=== PATIENT | male | born 1985 | race African-American/Black ===

== ENCOUNTER 2017-01-24 00:33 | Emergency (ER) | payer OTHER ==
[~2017-01-24] VITALS: Ht 190.5 cm; Wt 108.9 kg
[2017-01-24] MEDS ORDERED: NKM (00:47)
[2017-01-24] MEDS ORDERED: BENADRYL25 MG ORAL (01:07)
[2017-01-24] MEDS ORDERED: PERMETHRIN60 GM TOPIC (01:07)
[2017-01-24 01:09] VITALS: BP 128/71
[2017-01-24 01:15] VITALS: BP 128/71
--- NOTE | 2017-01-24 02:12 | Emergency Room Report ---
History of Present Illness General Chief Complaint: Skin Rash/Abscess Source: Patient Present Illness HPI 31 YOM c/o whole body "itchy rash" for "months." Predominant in finger folds. Not above neck. No sick contacts. Thinks he got scabies "from friend who had it." Denies assoc fever/chills, blistering, vesicles. Didnt take any other medication for it. Allergies: Coded Allergies: No Known Allergies (Unverified , 01/24/17) Patient History Past Medical History: none Past Surgical History: none Pertinent Family History: none Social History: Denies: alcohol use, drug use, smoking Immunizations: UTD Reviewed Nursing Documentation: PMH: Agreed, PSxH: Agreed Review of Systems All Other Systems: negative except mentioned in HPI Physical Exam Vital Signs Date Time Temp Pulse Resp B/P Pulse Ox O2 Delivery O2 Flow Rate FiO2 01/24/17 00:44 98.2 77 16 128/71 99 Room Air Sp02 EP Interpretation: reviewed General Appearance: normal inspection, well appearing, no apparent distress, alert, GCS 15, non-toxic Head: normocephalic, atraumatic Eyes: bilateral eye EOMI, bilateral eye PERRL ENT: normal ENT inspection, hearing grossly normal, normal voice Neck: normal inspection, full range of motion, supple, no bony tend Respiratory: normal inspection, lungs clear, normal breath sounds, no respiratory distress, no retraction, no wheezing Cardiovascular #1: regular rate, rhythm, no edema Gastrointestinal: normal inspection, normal bowel sounds, non tender, soft, no guarding, no hernia Genitourinary: no CVA tenderness Musculoskeletal: normal inspection, back normal, normal range of motion, Yulisa' s Sign negative Neurologic: normal inspection, alert, oriented x3, responsive, steel heater III-XII nml as tested, motor strength/tone normal, speech normal Psychiatric: normal inspection, judgement/insight normal, mood/affect normal Skin: other - mutliple areas of excoriations overlying small erythematous plaques on chest, abdomen, bilateral upper/lower extremities. [place] noted bilateral upper extremities between digits at the base Medical Decision Making Diagnostic Impression: Primary Impression: Rash and other nonspecific skin eruption ER Course Likely scabies given digit burrows Rx elemite, bendaryl Advised head to toe application tonight, repeating next week if necessary DC home Last Vital Signs Date Time Temp Pulse Resp B/P Pulse Ox O2 Delivery O2 Flow Rate FiO2 01/24/17 01:15 98.2 16 128/71 99 Room Air 01/24/17 00:44 77 Status: improved Disposition: HOME, SELF-CARE Condition: Improved Scripts Diphenhydramine Hcl* (BENADRYL*) 25 Mg Capsule 25 MG ORAL TID Y for Itching for 7 Days, #30 CAP Prov: KEVON CORMIER M.D. 01/24/17 Permethrin* (ELIMITE*) 60 Gm Cream..g. 1 APPLIC TOPIC ONCE, #60 GM 1 Refill Apply cream from head to toe; leave on for 8-14 hours before washing off with water; may reapply in 1 week if live mites appear. Prov: KEVON CORMIER M.D. 01/24/17 Referrals: NOT CHOSEN [facility]/,REFERRING (PCP) Patient Instructions: Contact Precautions, [id number] Additional Instructions: - Apply cream from neck down tonight. Shower in morning. Repeat if needed one week from now. - Take benadryl as needed for itch KEVON CORMIER M.D. January 24, 2017 02:12
== END 2017-01-24 01:15 | disposition home or self-care (01) ==
LOC: EMR 00:50
DX: R21 Rash and other nonspecific skin eruption (principal)
CPT/HCPCS: 99284

== ENCOUNTER 2017-02-27 21:11 | Emergency (ER) | payer OTHER ==
[~2017-02-27] VITALS: Ht 185.4 cm; Wt 108.9 kg
[~2017-02-27 21:11] MED LIST: BENADRYL25 MG ORAL; NKM; PERMETHRIN60 GM TOPIC
[2017-02-27] MEDS ORDERED: Bactrim DS (160mg/800mg) tab ORAL ONE (21:30)
[2017-02-27 21:33] VITALS: BP 121/69
[2017-02-27] MEDS ORDERED: HYDROCODON-ACE1 EA15 ORAL (21:45)
[2017-02-27] MEDS ORDERED: Norco 5mg/325mg tab ORAL ONE (21:45)
[2017-02-27] MEDS ORDERED: BACTRIM DS TAB1 EAC1 ORAL (21:45)
--- NOTE | 2017-02-27 21:45 | Emergency Room Report ---
History of Present Illness General Chief Complaint: Skin Rash/Abscess Source: Patient Present Illness HPI Is a 31-year-old male with no past medical history. He presents with an abscess to the left face for about week and a half. He tried to pop it 2 days ago and there were some pus. Now more swollen. No fever chills but no nausea no vomiting. Never had this problem before. No other complaint. Pain is 7/ 10. Worse with palpation. Allergies: Coded Allergies: No Known Allergies (Unverified , 01/24/17) Patient History Past Medical History: see triage record, old chart reviewed Past Surgical History: none Pertinent Family History: none Social History: Reports: smoking Immunizations: other Reviewed Nursing Documentation: PMH: Agreed, PSxH: Agreed Nursing Documentation-PMH Past Medical History: No Stated History Review of Systems Eye: Denies: blurred vision, eye pain ENT: Denies: ear pain, nose congestion, throat swelling Respiratory: Denies: cough, shortness of breath Cardiovascular: Denies: chest pain, palpitations Gastrointestinal: Denies: abdominal pain, diarrhea, nausea, vomiting Musculoskeletal: Denies: back pain, joint pain Skin: Denies: rash Neurological: Denies: headache, numbness Endocrine: Denies: increased thirst, increased urine Hematologic/Lymphatic: Denies: easy bruising All Other Systems: negative except mentioned in HPI Physical Exam Vital Signs Date Time Temp Pulse Resp B/P Pulse Ox O2 Delivery O2 Flow Rate FiO2 02/27/17 21:21 98.2 63 16 121/69 99 Room Air vitals normal Sp02 EP Interpretation: reviewed, normal General Appearance: well appearing, no apparent distress, alert Head: normocephalic, atraumatic, other - Left face: Is an indurated area of 3 cm. There has a small necrotic center. No fluctuant area. Eyes: bilateral eye EOMI, bilateral eye PERRL ENT: hearing grossly normal, normal pharynx Neck: full range of motion, supple, no meningismus Respiratory: chest non-tender, lungs clear, normal breath sounds Cardiovascular #1: regular rate, rhythm, no murmur Gastrointestinal: normal bowel sounds, non tender, no mass, no organomegaly, no bruit, non-distended Musculoskeletal: back normal, gait/station normal, normal range of motion Psychiatric: mood/affect normal Skin: warm/dry Procedures Incision and Drainage Incision and Drainage : Consent: Verbal Site: Face Blade Size: 11 I & D Procedure: betadine prep, sterile drapes applied, sterile dressing applied Wound Location: face Anesthesia: Lidocaine w/ Epi Volume Anesthetic (ccs): 2 Patient Tolerated: Well Complications: None Progress area clean with Betadine. Local anesthetic 1% lidocaine with epinephrine injected. A 1 cm incision. Loculated area broken up with forcep. Small amount of pus expressed. Patient tolerated procedure without any problem. Medical Decision Making Diagnostic Impression: Primary Impression: Abscess ER Course Patient with abscess to the face. Most likely MRSA. No deep infection. We'll discharge him. No evidence of necrotizing fasciitis. Last Vital Signs Date Time Temp Pulse Resp B/P Pulse Ox O2 Delivery O2 Flow Rate FiO2 02/27/17 21:33 98.2 16 121/69 99 Room Air 02/27/17 21:21 63 Status: improved Disposition: HOME, SELF-CARE Condition: Stable Scripts Hydrocodone/Acetaminophen 5-325* (HYDROCODONE/ACETAMINOPHEN 5-325*) 1 Each Tablet 1 TAB ORAL Q6H Y for For Pain, #15 TAB 0 Refills Prov: JUSTUS MACKENZIE M.D. 02/27/17 Trimethoprim/Sulfamethoxazole 160/800* (BACTRIM DS TABLET*) 1 Each Tablet 1 TAB ORAL Q12H, #14 TAB 0 Refills Prov: JUSTUS MACKENZIE M.D. 02/27/17 Patient Instructions: Abscess Additional Instructions: Followup with your DrBrenda in 2 to 3 days for recheck. Clean area with hydrogen peroxide. Return if symptom worsen. JUSTUS MACKENZIE M.D. Feb 27, 2017 21:45
[2017-02-27 21:50] VITALS: BP 121/69
== END 2017-02-27 21:50 | disposition home or self-care (01) ==
LOC: EMR 21:39
DX: L02.01 Cutaneous abscess of face (principal); F17.200 Nicotine dependence, unspecified, uncomplicated
CPT/HCPCS: 10060